=== PATIENT | male | born 1950 | race African-American/Black ===

== ENCOUNTER 2021-09-14 03:36 | Inpatient (IN) | payer OTHER, MEDICARE ==
[2021-09-14] VITALS (60 sets, daily range): BP systolic 69–158; BP diastolic 38–92
[~2021-09-14] VITALS: Ht 180.3 cm; Wt 89.8 kg
[2021-09-14] MEDS ORDERED: ACETAMINOPHEN 325 MG TABLET PO ONE (04:00)
[2021-09-14] MEDS ORDERED: IV NS 0.9% 1,000 ML BAG IV ONE ×2 (04:00→05:30)
--- NOTE | 2021-09-14 04:00 | NUR ---
JESSICA FROM [facility] FOR C/O GROSS HEMATURIA HX PROSTATE CA, WELL FEBRILE, TACHYCARDIC AND HYPOTENSIVE. PT AWAKE AND ALERT PLACED ON GUIDE DOG INSTRUCTOR AND PULSE OX AND WAS NOTED HYPOTENSIVE AT 60/47 HR 126. RESP. EVEN AND UNLABORED ON TRACH COLLAR 3LPM. WAS AT BEDSIDE FOR EVAL.
[2021-09-14] MEDS ORDERED: ACETAMINOPHEN ES 500 MG TABLET ONE (04:04)
--- NOTE | 2021-09-14 04:27 | NUR ---
CALLED [facility] AND SPOKE WITH HIS NURSE. SHE STATED THE LAST DOSE HE RECIEVED OF LOVENOX WAS 0900 09/13/21.
--- NOTE | 2021-09-14 04:38 | NUR ---
BLADDER MANUALLY IRRIGATED WITH 1500ML NS TOTAL. GROSS HEMATURIA NOTED AND MULTIPLE CLOTS VISUALIZED. PT TOLERATED PROCEDURE WELL.
[2021-09-14 04:50] LABS: BASOPHILS % (AUTO) 0.3 % (0.0-2.0); EOSINOPHILS % (AUTO) 0.1 % (0.0-6.0); HEMATOCRIT 30 % (39-51); HEMOGLOBIN 9.4 g/dL (13.5-17.5); LYMPHOCYTES # (AUTO) 0.4 K/uL (0.8-4.8); LYMPHOCYTES % (AUTO) 2.8 % (20.0-44.0); MEAN CORPUSCULAR HGB CONC 32 g/dl (31.0-36.0); MEAN CORPUSCULAR VOLUME 81 fL (80-96); MONOCYTES # (AUTO) 0.5 K/uL (0.1-1.30); MONOCYTES % (AUTO) 3.6 % (2.0-12.0); NEUTROPHILS # (AUTO) 12.2 K/uL (1.8-8.9); NEUTROPHILS % (AUTO) 93.2 % (43.0-81.0); PLATELET COUNT (AUTO) 432 K/uL (150-450); RED BLOOD CELL COUNT(AUTO) 3.66 MIL/uL (4.5-6.0); WHITE BLOOD COUNT (AUTO) 13.1 K/uL (4.3-11.0)
--- NOTE | 2021-09-14 04:55 | NUR ---
PATIENT TRANSPORTED TO CT SCAN VIA [facility]
[2021-09-14 05:26] LABS: CALCIUM, SERUM 9.9 mg/dL (8.5-10.1); CARBON DIOXIDE 25 mmol/L (21-32); CHLORIDE 95 mmol/L (98-107); CREATININE 1.8 mg/dL (0.6-1.3); GLUCOSE 115 mg/dL (74-106); POTASSIUM 4.8 mmol/L (3.5-5.1); SODIUM SERUM 132 mmol/L (136-145); UREA NITROGEN, BLOOD 41 mg/dL (7-18)
[2021-09-14] MEDS ORDERED: CEFTRIAXONE 1GM BAG (ER ONLY) 1 GM/50 ML PIGGYBACK IV ONE (05:30)
[2021-09-14] MEDS ORDERED: AZITHROMYCIN 500 MG in IV D5W 250 ML IV ONE (05:30)
[2021-09-14 05:31] LABS: ALANINE AMINOTRANSFERASE 73 U/L (12-78); ALBUMIN 2.4 g/dL (3.4-5.0); ALKALINE PHOSPHATASE 135 U/L (46-116); ASPARTATE AMINOTRANSFERASE 31 U/L (15-37); BILIRUBIN,DIRECT 0.2 mg/dL (0.0-0.2); BILIRUBIN,TOTAL 0.6 mg/dL (0.2-1.0); TOTAL PROTEIN, SERUM 7.3 g/dL (6.4-8.2)
--- NOTE | 2021-09-14 05:32 | NUR ---
PAGED [facility]. AWAITING A CALL BACK FROM PROVIDER.
[2021-09-14] MEDS ORDERED: CEFTRIAXONE 1GM BAG (ER ONLY) 50 ML IV ONE (05:36)
--- NOTE | 2021-09-14 05:47 | NUR ---
CALLED FACILITY AND SPOKE WITH BOAZ HERNANDEZ TO GET BASELINE BP. PER MARY, PT'S IS BASELINE WITH SBP IN THE 120S.
[2021-09-14 05:48] LABS: BILIRUBIN,URINE NEGATIVE (NEGATIVE); COLOR,URINE RED (YELLOW); LEUKOCYTE ESTERASE ,URINE SMALL (NEGATIVE); NITRITE, URINE POSITIVE (NEGATIVE); PH,URINE 7.5 (5.0-8.0); PROTEIN,URINE >=300 mg/dl (NEGATIVE); UGLUCOSE NEGATIVE (NEGATIVE); UROBILINOGEN,URINE 0.2 EU/dL (0.2)
[2021-09-14] MEDS ORDERED: AZITHROMYCIN 500 MG VIAL ONE (05:52)
[2021-09-14] MEDS ORDERED: NOREPINEPHRINE 8 MG in IV NS 0.9% 242 ML IV PRN ×3 (06:00→09:30)
[2021-09-14 06:28] LABS: BACTERIA,URINE None seen /HPF (None Seen); RBC,URINE TOO NUMEROUS TO COUN /HPF (0-2); SQUAMOUS EPITHELIAL CELL,UR None Seen /HPF (None Seen); WBC,URINE NONE SEEN /HPF (0-3)
[2021-09-14] MEDS ORDERED: ONDANSETRON HCL/PF 4 MG/2 ML VIAL IVP PRN (06:30)
--- NOTE | 2021-09-14 06:52 | NUR ---
PER NURSING SUP, PICC NURSE ETA 0800. PT GAVE VERBAL CONSENT FOR PICC LINE INSERTION AND CONSENT SIGNED BY TWO RN'S.AWAITING PICC LINE INSERTION FOR LEVOPHED ADMINSTRATION PER MD ORDER.
[2021-09-14] MEDS ORDERED: NOREPINEPHRINE 4 MG/4 ML AMPUL IV ONE (06:58)
--- NOTE | 2021-09-14 07:13 | NUR ---
LEVOPHED INITIATED AT 0.1MCG/KG/MIN PER PROTOCOL AT 20G LH. BP 60/34. WILL TITRATE PER PROTOCOL.
--- NOTE | 2021-09-14 07:15 | NUR ---
LEVOPHED TITRATED TO 0.3MCG/KG/MIN. PT TOLERATING WELL.
--- NOTE | 2021-09-14 07:24 | NUR ---
LAB UNABLE TO DRAWN, WAITING FOR PICC LINE INSERTION AT 0800
[2021-09-14] MEDS ORDERED: FURO-145 GT (08:14)
[2021-09-14] MEDS ORDERED: ZINC220C6 GT (08:14)
[2021-09-14] MEDS ORDERED: CRAN3875 GT (08:14)
[2021-09-14] MEDS ORDERED: DOCU-141 GT (08:14)
[2021-09-14] MEDS ORDERED: ENOX40DI SQ (08:14)
[2021-09-14] MEDS ORDERED: LEVO112T5 GT (08:14)
[2021-09-14] MEDS ORDERED: AMIN887L GT (08:14)
[2021-09-14] MEDS ORDERED: MULT-134 GT (08:14)
[2021-09-14] MEDS ORDERED: CHLO473M3 MM (08:14)
[2021-09-14] MEDS ORDERED: IPRA12.9 IH (08:14)
[2021-09-14] MEDS ORDERED: FAMO20TA8 PO (08:14)
[2021-09-14] MEDS ORDERED: CHOL200013 GT (08:14)
[2021-09-14] MEDS ORDERED: ASCO500C17 GT (08:14)
[2021-09-14] MEDS ORDERED: ALBU8.5H8 IH (08:14)
[2021-09-14] MEDS ORDERED: MIDO10TA GT (08:14)
--- NOTE | 2021-09-14 08:50 | NUR ---
PT TRANSPORTED TO ICU IN STABLE CONDITION WITH ACLS PROTOCOLS IN PLACE
[2021-09-14] MEDS ORDERED: ENOXAPARIN SODIUM 40 MG/0.4 ML DISP.SYRIN SQ SCH (09:00)
[2021-09-14] MEDS ORDERED: DOCUSATE SODIUM 100 MG CAPSULE PO SCH (09:00)
[2021-09-14] MEDS ORDERED: Medication Not On Formulary EA (Midodrine Hcl 10 MG) GT SCH (09:00)
[2021-09-14] MEDS ORDERED: FAMOTIDINE (20 MG) 20 MG TABLET PO SCH (09:00)
[2021-09-14] MEDS ORDERED: Z GUARD REMEDY 4 OZ OINT TP PRN (09:00)
--- NOTE | 2021-09-14 09:00 | NUR ---
PT ARRIVED IN ICU VIA GURNEY ACCOMPANIED BY KNITTING MACHINE MECHANIC'S ON 3L TRACH MASK AT 0843. PT ALERT OX3. LEVOPHED INFUSING PER MD ORDERS. HEMATURIA NOTED IN GALINDO CATHETER AT THIS TIME. PICC LINE RN ARRIVED TO INSERT PICC LINE AT THIS TIME. WILL CONTINUE TO MONITOR.
[2021-09-14] MEDS: IV NS 0.9% 1,000 ML IV PRN ×2 (10:00→23:08)
[2021-09-14] MEDS ORDERED: VANCOMYCIN 1.25 GM in IV D5W 250 ML IV ONE (10:00)
[2021-09-14] MEDS ORDERED: PHARMACY TO CHANGE PO MEDS TO GT/NG XX PRN (10:30)
[2021-09-14] MEDS: CHLORHEXIDINE GLUCONATE 15 ML UDC MM SCH ×2 (11:03→18:24)
[2021-09-14] MEDS: PANTOPRAZOLE 40 MG/PACK PACK GT SCH (11:03)
[2021-09-14] MEDS: IV NS 0.9% 250 ML IV PRN (11:08)
[2021-09-14] MEDS: NOREPINEPHRINE 8 MG in IV NS 0.9% 242 ML IV PRN (11:16)
[2021-09-14] MEDS ORDERED: ALBUTEROL SULFATE 8 GM HFA.AER.AD IH SCH (12:00)
[2021-09-14] MEDS: MIDODRINE HCL (5MG) 5 MG TABLET GT SCH ×3 (13:24→20:56)
[2021-09-14] MEDS: CEFEPIME 2 GM in IV D5W 100 ML IV SCH ×2 (13:24→20:56)
[2021-09-14] MEDS: ALBUTEROL FS 2.5 MG/3 ML VIAL.NEB NEB SCH ×2 (15:58→19:51)
--- NOTE | 2021-09-14 16:23 | NUR ---
PER [facility]. PT'S VACCINATIONS ARE FOLLOWS COVID ALL MODERNA 07/25/2020 08/23/2020 05/09/2021 PNA VACCINE 06/13/2019 FLU VACCINE 02/23/2021
[2021-09-14] MEDS: DOCUSATE SODIUM LIQ 100 MG/10 ML UDC GT SCH (17:00)
--- NOTE | 2021-09-14 19:35 | NUR ---
END OF SHIFT NOTE: PT HAD A FAIRLY UNEVENTFUL SHIFT. LEVOPHED GTT INFUSING PER MD ORDERS, CURRENTLY INFUSING AT 0.08 MCG/KG/MIN. PT HAD 2 BMS THIS SHIFT. GALINDO CATHETER CONTINUES TO DRAIN GUTIERREZ COLORED URINE, MD'S AWARE. RIGHT UPPER ARM PICC INSERTED WITHOUT DIFFICULTY PER MD ORDERS. PT CHECKED ON HOURLY AND PRN BY NURSING STAFF.
--- NOTE | 2021-09-14 20:00 | NUR ---
RN NOTE RECEIVED PT AWAKE, ALERT AND ORIENTED X 3. ON TRACH COLLAR AT 3L. DENIES ANY SOB. NO SIGNS OF DISTRESS NOTED. PT ON LEVOPHED AT 0.08MCG/KG/MIN, PICC LINE PATENT AND INTACT. PT ON NS AT 75ML/HR. NO SIGNS OF INFILTRATION NOTED. PEG IN PLACE, PATENT. GALINDO DRAINING DARK ORANGE URINE. PT DENIES PAIN AT THIS TIME. ALL SAFETY MEASURES IN PLACE. CALL LIGHT WITHIN REACH. WILL CONTINUE TO MONITOR.
[2021-09-14] MEDS: ACETAMINOPHEN 650 MG/20.3 ML UDC GT PRN (21:12)
--- NOTE | 2021-09-14 21:15 | NUR ---
RN NOTE PT COMPLAINED OF PAIN ON THE ARM 02/12. PT REQUESTED FOR TYLENOL. GIVEN ORDERED. WILL CONTINUE TO MONITOR.
--- NOTE | 2021-09-14 22:30 | NUR ---
RN NOTE BLOOD CULTURE RESULTS RELAYED TO SAÚL MURRAY. NO NEW ORDERS MADE. PT CURRENTLY ON IV ATB
[2021-09-15] VITALS (74 sets, daily range): BP systolic 71–148; BP diastolic 40–78
[2021-09-15] MEDS: ALBUTEROL FS 2.5 MG/3 ML VIAL.NEB NEB SCH ×4 (01:28→20:13)
[2021-09-15 04:21] LABS: BASOPHILS % (AUTO) 0.2 % (0.0-2.0); EOSINOPHILS % (AUTO) 0.7 % (0.0-6.0); HEMATOCRIT 22 % (39-51); HEMOGLOBIN 7.1 g/dL (13.5-17.5); LYMPHOCYTES # (AUTO) 0.6 K/uL (0.8-4.8); LYMPHOCYTES % (AUTO) 3.7 % (20.0-44.0); MEAN CORPUSCULAR HGB CONC 32 g/dl (31.0-36.0); MEAN CORPUSCULAR VOLUME 80 fL (80-96); MONOCYTES # (AUTO) 1.5 K/uL (0.1-1.30); MONOCYTES % (AUTO) 8.8 % (2.0-12.0); NEUTROPHILS % (AUTO) 86.6 % (43.0-81.0); PLATELET COUNT (AUTO) 332 K/uL (150-450); RED BLOOD CELL COUNT(AUTO) 2.75 MIL/uL (4.5-6.0); WHITE BLOOD COUNT (AUTO) 17.3 K/uL (4.3-11.0)
[2021-09-15 04:35] LABS: CARBON DIOXIDE 27 mmol/L (21-32); CHLORIDE 99 mmol/L (98-107); CREATININE 0.7 mg/dL (0.6-1.3); GLUCOSE 120 mg/dL (74-106); MAGNESIUM 1.8 mg/dL (1.8-2.4); PHOSPHORUS 4.5 mg/dL (2.5-4.9); POTASSIUM 3.4 mmol/L (3.5-5.1); SODIUM SERUM 135 mmol/L (136-145); UREA NITROGEN, BLOOD 29 mg/dL (7-18)
[2021-09-15] MEDS: ACETAMINOPHEN 650 MG/20.3 ML UDC GT PRN (04:39)
[2021-09-15] MEDS: NOREPINEPHRINE 8 MG in IV NS 0.9% 242 ML IV PRN (05:34)
--- NOTE | 2021-09-15 06:50 | NUR ---
RN CLOSING NOTES PT SLEEPING. AROUSES EASILY. PT ABLE TO MAKE NEEDS KNOWN. NOT IN ANY DISTRESS. CONTINUE ON O2 AT 2L VIA TRACH COLLAR SATING AT 100%. SR ON TELE MONITOR WITH HR AT 95 AT THIS TIME, PT WITH EPISODE OF SINUS TACH. PT DENIES ANY SOB OR CHEST PAIN. LEVOPHED RESTARTED DUE TO LOW BP, CURRENTLY AT 0.06MCG/KG/MIN. PICC LINE PATENT AND INTACT. PT REMAIN AFEBRILE. STILL NOTED WITH HEMATURIA. GALINDO INTACT, DRAINING WELL BY GRAVITY. ALL NEEDS ATTENDED. TURNED AND REPOSITIONED. WILL ENDORSE TO NEXT SHIFT NURSE FOR WALTER.
--- NOTE | 2021-09-15 07:30 | NUR ---
RN NOTES PT FOUND SEMI FOWLERS DISPLAYING NO S/S OF DISTRESS, PT ENDORSES NO PAIN AND IS BREATHING EVEN AND UNLABORED ON L2 O2 P8 TRACH. R UA PICC IS PATIENT AND INTACT. GALINDO CATH IS BELOW PATIENT DRAINING BY GRAVITY. VSS, RN WILL MONITOR AND TREAT THROUGHOUT SHIFT. SAFETY MEASURES IN PLACE, BED LOCKED AND IN LOWEST POSITION, SIDE RAILS UPX2, CALL LIGHT WITHIN REACH, PT INSTRUCTED TO CALL FOR ASSISTANCE.
[2021-09-15] MEDS: PANTOPRAZOLE 40 MG/PACK PACK GT SCH (08:04)
[2021-09-15] MEDS: CHLORHEXIDINE GLUCONATE 15 ML UDC MM SCH ×2 (08:04→17:00)
[2021-09-15] MEDS: LEVOTHYROXINE SODIUM 112 MCG TABLET GT SCH (08:04)
[2021-09-15] MEDS: MIDODRINE HCL (5MG) 5 MG TABLET GT SCH ×4 (08:05→20:48)
[2021-09-15] MEDS: DOCUSATE SODIUM LIQ 100 MG/10 ML UDC GT SCH ×2 (08:25→17:00)
[2021-09-15] MEDS: CEFEPIME 2 GM in IV D5W 100 ML IV SCH ×2 (08:26→20:48)
[2021-09-15] MEDS: VANCOMYCIN 1 GM in IV D5W 250 ML IV SCH (10:29)
[2021-09-15] MEDS: POTASSIUM CL. PREMIX PERIPHER. 50 ML IV SCH ×2 (12:38→13:48)
[2021-09-15] MEDS: IV NS 0.9% 1,000 ML IV PRN (13:00)
--- NOTE | 2021-09-15 16:50 | NUR ---
MD COMMUNICATION RN INFORMED MD THAT PT REPORTS 9/10 SHOULDER PAIN. MD GAVE ORDERS: 2MG MORPHINE IVP PRN SEVERE PAIN Q4H. RN ACKNOWLEDGED ORDER AND WILL EXECUTE DIRECTED.
[2021-09-15] MEDS ORDERED: MORPHINE SULFATE INJ 2 MG/ML DISP.SYRIN IV PRN (17:00)
--- NOTE | 2021-09-15 19:25 | NUR ---
RN NOTES PT FOUND SEMI FOWLERS DISPLAYING NO S/S OF DISTRESS, PT ENDORSES NO PAIN AND IS BREATHING EVEN AND UNLABORED ON L2 O2 PORTEX 8 TRACH. R UA PICC IS PATIENT AND INTACT. GALINDO CATH IS BELOW PATIENT DRAINING BY GRAVITY. SBAR AND REPORT GIVEN TO CHANGER FIXER RN, ALL QUESTIONS ANSWERED. SAFETY MEASURES IN PLACE, BED LOCKED AND IN LOWEST POSITION, SIDE RAILS UPX2, CALL LIGHT WITHIN REACH, PT INSTRUCTED TO CALL FOR ASSISTANCE. PT ENDORSED IN STABLE CONDITION FOR WALTER.
--- NOTE | 2021-09-15 19:30 | NUR ---
RN NOTE PT RECEIVED IN BED. PT HAS TRACH COLLAR AT 2 LPM, WITH CURRENT OXYGEN SATURATION AT 100%. NO SIGNS OF LABORED BREATHING. BREATHING EVEN AND UNLABORED. PT IS ALERT AND ORIENTED X3, ABLE TO VERBALIZE NEEDS. PT ON DATABASE ENGINEER CURRENTLY SHOWING NSR. PEG TUBE NOTED. INTACT, PATENT WITH NO RESIDUAL NOTED. F/C NOTED. IV ACCESS NOTED ON RIGHT UPPER ARM PICC. LINE FLUSHED, PATENT, AND INTACT WITH NO SIGNS OF INFILTRATION. 0.9% NS RUNNING AT 75 CC/HR. ALL SAFETY MEASURES IMPLEMENTED. HOB ELEVATED. CALL LIGHT WITHIN REACH. BED ALARM ON. BED LOCKED AND IN LOWEST POSITION. WILL CONTINUE TO MONITOR AND ASSESS FOR ANY CHANGES DURING SHIFT.
[2021-09-16] VITALS (30 sets, daily range): BP systolic 98–141; BP diastolic 49–75
[2021-09-16] MEDS: ALBUTEROL FS 2.5 MG/3 ML VIAL.NEB NEB SCH ×4 (01:25→20:24)
[2021-09-16] MEDS: IV NS 0.9% 1,000 ML IV PRN ×2 (01:52→17:20)
[2021-09-16 04:29] LABS: CALCIUM, SERUM 9.2 mg/dL (8.5-10.1); CARBON DIOXIDE 26 mmol/L (21-32); CHLORIDE 101 mmol/L (98-107); CREATININE 0.5 mg/dL (0.6-1.3); GLUCOSE 89 mg/dL (74-106); POTASSIUM 3.2 mmol/L (3.5-5.1); SODIUM SERUM 135 mmol/L (136-145); UREA NITROGEN, BLOOD 18 mg/dL (7-18)
[2021-09-16] MEDS: CEFEPIME 2 GM in IV D5W 100 ML IV SCH ×3 (04:51→21:42)
--- NOTE | 2021-09-16 06:26 | NUR ---
RN NOTE NO CHANGES IN PT CONDITION DURING SHIFT. PT HAS TRACH COLLAR AT 5 LPM, WITH CURRENT OXYGEN SATURATION AT 100%. NO SIGNS OF LABORED BREATHING. BREATHING EVEN AND UNLABORED. PT IS ALERT AND ORIENTED X3, ABLE TO VERBALIZE NEEDS. IV ACCESS NOTED ON RIGHT UPPER ARM PICC. LINE FLUSHED, PATENT, AND INTACT WITH NO SIGNS OF INFILTRATION. 0.9% NS RUNNING AT 75 CC/HR. ALL DUE MEDS GIVEN ORDERED. PT KEPT CLEAN AND COMFORTABLE. ALL SAFETY MEASURES IMPLEMENTED. HOB ELEVATED. CALL LIGHT WITHIN REACH. BED ALARM ON. BED LOCKED AND IN LOWEST POSITION. WILL ENDORSE TO MORNING SHIFT RN FOR WALTER.
--- NOTE | 2021-09-16 08:05 | NUR ---
WOUND CARE CONSULT: LIMITED ASSESSMENT TODAY DUE TO PT HAVING SHOULDER DISCOMFORT. UNABLE TO VISUALIZE LEFT BUTTOCK/THIGH AREA. ADMISSION PHOTO INDICATED SCARRING TO LEFT BUTTOCK/THIGH AREA. PT NOTED TO HAVE SCARRING TO SACRAL/BUTTOCKS AREA AND DISCOLORATION TO BILATERAL HEELS, PRESENT ON ADMISSION. RECOMMEND SURGICAL AND DPM CONSULTS (DR PARK AND DR TONY NOTIFIED. RECOMMENDATIONS MADE FOR SKIN PROTECTION. DISCUSSED WITH NURSING STAFF. PT IS ON [facility] LOW AIRLOSS BED. MD IN AGREEMENT WITH PLAN OF CARE.
[2021-09-16 09:04] LABS: CARBON DIOXIDE 26 mmol/L (21-32); CHLORIDE 102 mmol/L (98-107); CREATININE 0.5 mg/dL (0.6-1.3); GLUCOSE 89 mg/dL (74-106); SODIUM SERUM 136 mmol/L (136-145); UREA NITROGEN, BLOOD 16 mg/dL (7-18)
[2021-09-16] MEDS: PANTOPRAZOLE 40 MG/PACK PACK GT SCH (09:16)
[2021-09-16] MEDS: DOCUSATE SODIUM LIQ 100 MG/10 ML UDC GT SCH ×2 (09:16→17:41)
[2021-09-16] MEDS: CHLORHEXIDINE GLUCONATE 15 ML UDC MM SCH ×2 (09:16→17:41)
[2021-09-16] MEDS: MIDODRINE HCL (5MG) 5 MG TABLET GT SCH ×4 (09:17→21:42)
[2021-09-16] MEDS: LEVOTHYROXINE SODIUM 112 MCG TABLET GT SCH (09:18)
[2021-09-16] MEDS: VANCOMYCIN 1 GM in IV D5W 250 ML IV SCH (10:24)
[2021-09-16] MEDS: POTASSIUM CL. PREMIX PERIPHER. 50 ML IV SCH ×4 (10:29→14:20)
[2021-09-16 11:58] LABS: BASOPHILS # (AUTO) 0.1 K/uL (0.0-0.2); BASOPHILS % (AUTO) 0.8 % (0.0-2.0); EOSINOPHILS % (AUTO) 2.4 % (0.0-6.0); HEMATOCRIT 21 % (39-51); LYMPHOCYTES # (AUTO) 0.5 K/uL (0.8-4.8); LYMPHOCYTES % (AUTO) 4.9 % (20.0-44.0); MEAN CORPUSCULAR HGB CONC 33 g/dl (31.0-36.0); MEAN CORPUSCULAR VOLUME 80 fL (80-96); MONOCYTES # (AUTO) 0.7 K/uL (0.1-1.30); MONOCYTES % (AUTO) 6.6 % (2.0-12.0); NEUTROPHILS # (AUTO) 8.5 K/uL (1.8-8.9); NEUTROPHILS % (AUTO) 85.3 % (43.0-81.0); PLATELET COUNT (AUTO) 315 K/uL (150-450); RED BLOOD CELL COUNT(AUTO) 2.57 MIL/uL (4.5-6.0)
[2021-09-16 12:02] LABS: HEMOGLOBIN 6.8 g/dL (13.5-17.5)
--- NOTE | 2021-09-16 19:35 | NUR ---
RN NOTES RECEIVED REPORT FROM ICU NURSE TYRONE Adam
--- NOTE | 2021-09-16 20:00 | NUR ---
RN NOTES RECEIVED PATIENT FROM ICU, AWAKE, A/O X 3 ABLE TO MAKE NEEDS KNOWN, WITH TRACH COLLAR ON COOL AEROSOL @ 5 LPM, RESPIRATORY EVEN AND UNLABORED, REMAIN AFEBRILE, NO S/S OF DISTRESS NOTED. PATIENT NOTED WITH TERRI PICC LINE, LEFT HAND #18 PERIPHERAL LINE, INTACT IN PLACED, FLUSHED WITH NS. NO INFILTRATION NOTED AT SITE. RUNNING ON NS 1L @ 75 ML/HR. WITH G-TUBE IN PLACED, VERIFIED PLACEMENT BY AUSCULTATION, WITH NO RESIDUAL NOTED UPON ASPIRATION. ALL SAFETY PRECAUTION PROVIDED, BED IN LOWEST POSITION, LOCKED. CONTINUE TO MONITOR. Addendum: 09/17/21 at 0230 by KEISHA QUILES RN PATIENT NOTED WITH GALINDO CATHETER, DRAINING WELL VIA GRAVITY, WITH LIGHT PINK URINE COLOR, ON MONITORING FOR HEMATURIA.
[2021-09-17] VITALS (13 sets, daily range): BP systolic 107–142; BP diastolic 52–63
[2021-09-17] MEDS: ALBUTEROL FS 2.5 MG/3 ML VIAL.NEB NEB SCH ×5 (01:28→20:35)
[2021-09-17 03:22] LABS: BASOPHILS % (AUTO) 0.4 % (0.0-2.0); EOSINOPHILS % (AUTO) 2.9 % (0.0-6.0); HEMATOCRIT 21 % (39-51); LYMPHOCYTES # (AUTO) 0.5 K/uL (0.8-4.8); LYMPHOCYTES % (AUTO) 6.9 % (20.0-44.0); MEAN CORPUSCULAR HGB CONC 32 g/dl (31.0-36.0); MEAN CORPUSCULAR VOLUME 80 fL (80-96); MONOCYTES # (AUTO) 0.6 K/uL (0.1-1.30); MONOCYTES % (AUTO) 7.3 % (2.0-12.0); NEUTROPHILS # (AUTO) 6.3 K/uL (1.8-8.9); NEUTROPHILS % (AUTO) 82.5 % (43.0-81.0); PLATELET COUNT (AUTO) 323 K/uL (150-450); RED BLOOD CELL COUNT(AUTO) 2.66 MIL/uL (4.5-6.0); WHITE BLOOD COUNT (AUTO) 7.7 K/uL (4.3-11.0)
[2021-09-17 03:41] LABS: HEMOGLOBIN 6.9 g/dL (13.5-17.5)
[2021-09-17 03:49] LABS: CARBON DIOXIDE 24 mmol/L (21-32); CHLORIDE 101 mmol/L (98-107); CREATININE 0.5 mg/dL (0.6-1.3); GLUCOSE 86 mg/dL (74-106); MAGNESIUM 1.5 mg/dL (1.8-2.4); PHOSPHORUS 2.8 mg/dL (2.5-4.9); POTASSIUM 3.1 mmol/L (3.5-5.1); SODIUM SERUM 135 mmol/L (136-145); UREA NITROGEN, BLOOD 13 mg/dL (7-18)
--- NOTE | 2021-09-17 04:20 | NUR ---
RN NOTES RECEIVED CRITICAL LAB RESULT HEMOGLOBIN- 6.9, NOTIFIED MICHAEL MURRAY NP, WITH NEW ORDER TRANSFUSE 1 UNIT PRBC AND OCCULT BLOOD NOTED AND CARRIED OUT.
--- NOTE | 2021-09-17 05:09 | NUR ---
RN NOTES PATIENT REFUSED TO BE CLEAN, CHANGE GOWN AND LINEN, PATIENT STATES " I DON'T WANNA BE CHANGED I'M COMFORTABLE RIGHT NOW, I'M CLEAN, JUST CLEAN ME WHEN I HAVE BOWEL MOVEMENT" OFFERED 3X, EXPLAINED RISKS AND BENEFITS, STILL REFUSED.
[2021-09-17] MEDS: CEFEPIME 2 GM in IV D5W 100 ML IV SCH (05:42)
--- NOTE | 2021-09-17 07:17 | NUR ---
RN CLOSING NOTES PATIENT REMAIN STABLE THROUGH OUT THE SHIFT, RESPIRATORY EVEN AND UNLABORED, REMAIN AFEBRILE, NO S/S OF DISTRESS NOTED. RUNNING ON NS 1L @ 75 ML/HR. WITH G-TUBE IN PLACED, VERIFIED PLACEMENT BY AUSCULTATION, WITH NO RESIDUAL NOTED UPON ASPIRATION. ALL DUE MEDS GIVEN ORDERED. PATIENT NOTED WITH GALINDO CATHETER, DRAINING WELL VIA GRAVITY, WITH LIGHT PINK URINE COLOR, ON MONITORING FOR HEMATURIA. ALL SAFETY PRECAUTION PROVIDED, BED IN LOWEST POSITION, LOCKED. ENDORSED TO NEXT SHIFT
--- NOTE | 2021-09-17 08:00 | NUR ---
RN OPENING NOTES RECEIVED PATIENT IN BED AWAKE .RESPIRATORY EVEN AND UNLABORED, REMAIN AFEBRILE, NO S/S OF DISTRESS NOTED. RUNNING NS @ 75 ML/HR. PATIENT HAS TERRI PICC LINE.PATIENT WITH G-TUBE . PATIENT NOTED WITH GALINDO CATHETER, DRAINING WELL VIA GRAVITY, WITH LIGHT PINK URINE COLOR, ON MONITORING FOR HEMATURIA. NO PAIN NOTED. ALL SAFETY PRECAUTION IN PLACE., BED IN LOWEST POSITION, LOCKED. CALL LIGHT AND TABLE IN REACH. WILL CONTINUE TO MONITOR.
[2021-09-17] MEDS: CHLORHEXIDINE GLUCONATE 15 ML UDC MM SCH ×2 (08:40→17:18)
[2021-09-17] MEDS: DOCUSATE SODIUM LIQ 100 MG/10 ML UDC GT SCH ×2 (08:41→17:00)
[2021-09-17] MEDS: PANTOPRAZOLE 40 MG/PACK PACK GT SCH (08:41)
[2021-09-17] MEDS: MIDODRINE HCL (5MG) 5 MG TABLET GT SCH ×4 (08:41→21:00)
[2021-09-17] MEDS: IV NS 0.9% 1,000 ML IV PRN (09:02)
[2021-09-17] MEDS: LEVOTHYROXINE SODIUM 112 MCG TABLET GT SCH (09:17)
[2021-09-17] MEDS ORDERED: MERO500P IV (09:21)
[2021-09-17] MEDS ORDERED: POTASSIUM CHLORIDE 20 MEQ TAB.PRT.SR PO ONE (09:30)
[2021-09-17] MEDS ORDERED: Magnesium 1GM/D5W 100ML PREMIX 100 ML IV SCH ×2 (09:30→10:00)
--- NOTE | 2021-09-17 12:00 | NUR ---
RN NOTES START BLOOD TRANSFUSION AT 1200. VITAL SIGNS STABLE , WL=[phone]/[id number], P=82, RR=20, T=98.6
[2021-09-17] MEDS: VANCOMYCIN 1.25 GM in IV D5W 250 ML IV SCH (12:25)
--- NOTE | 2021-09-17 13:00 | NUR ---
RN NOTES HELD AMIODARONE. GTUBE NOT FLUSHING. DR SEWELL AND DR MEYER AWARE.
--- NOTE | 2021-09-17 14:30 | NUR ---
RN NOTES END BLOOD TRANSFUSION AT 1430. VITAL SIGNS XM=[id number]/55, P=88, T=98.1, RR=20. NO ADVERSE REACTION NOTED. PATIENT TOLERATED TRANSFUSION WELL.
[2021-09-17] MEDS: MEROPENEM 500 MG in IV NS 0.9% 50 ML IV SCH ×2 (14:58→21:34)
--- NOTE | 2021-09-17 17:00 | NUR ---
RN NOTES NOT BEING ABLE TO ADMINISTER AMIODARONE AND COLACE . GTUBE IS NOT FLUSHING. DR SEWELL AND DR MEYER AWARE.
--- NOTE | 2021-09-17 18:34 | NUR ---
PERMACULTURE CONTRACTOR CLOSING NOTES PATIENT IN BED AWAKE .RESPIRATORY EVEN AND UNLABORED, REMAIN AFEBRILE, NO S/S OF DISTRESS NOTED. RUNNING NS @ 75 ML/HR. PATIENT HAS TERRI PICC LINE.PATIENT WITH G-TUBE . GTUBE NOT FLUSHING. DR SEWELL AND DR MEYER AWARE. WAITING FOR DR SEWELL TO VISIT THE PATIENT.PATIENT NOTED WITH GALINDO CATHETER, DRAINING WELL VIA GRAVITY, WITH LIGHT PINK URINE COLOR, 1100 ML URINE OUTPUT. ON MONITORING FOR HEMATURIA. NO PAIN NOTED.ON TEL;E MONITOR READING SR 87. ALL SAFETY PRECAUTION IN PLACE., BED IN LOWEST POSITION, LOCKED. CALL LIGHT AND TABLE IN REACH. WILL ENDORSE FOR WALTER.
--- NOTE | 2021-09-17 19:05 | NUR ---
RN CLOSING NOTES RECEIVED PATIENT ON BED, AWAKE, A/O X 3 ABLE TO MAKE NEEDS KNOWN, WITH TRACH COLLAR ON COOL AEROSOL @ 5 LPM, RESPIRATORY EVEN AND UNLABORED, REMAIN AFEBRILE, NO S/S OF DISTRESS NOTED. PATIENT NOTED WITH TERRI PICC LINE, LEFT HAND #18 PERIPHERAL LINE, INTACT IN PLACED, FLUSHED WITH NS. NO INFILTRATION NOTED AT SITE. RUNNING ON NS 1L @ 75 ML/HR. WITH G-TUBE , CLOGGED, UNABLE TO FLUSHED. NOTED WITH GALINDO CATHETER, DRAINING WELL VIA GRAVITY, ON MONITORING FOR HEMATURIA. ALL SAFETY PRECAUTION PROVIDED, BED IN LOWEST POSITION, LOCKED. CONTINUE TO MONITOR. Addendum: 09/17/21 at 2141 by KEISHA QUILES RN RN OPENING NOTES
--- NOTE | 2021-09-17 21:39 | NUR ---
RN NOTES UNABLE TO ADMINISTER MIDODRINE 10MG, PATIENT G-TUBE IS CLOGGED.
[2021-09-18] VITALS: BP 121/65
[2021-09-18] MEDS: ALBUTEROL FS 2.5 MG/3 ML VIAL.NEB NEB SCH ×4 (01:39→19:26)
[2021-09-18] MEDS: IV NS 0.9% 1,000 ML IV PRN (03:00)
[2021-09-18 04:00] VITALS: BP 104/55
[2021-09-18] MEDS: MEROPENEM 500 MG in IV NS 0.9% 50 ML IV SCH ×3 (05:08→21:10)
[2021-09-18 07:05] LABS: CALCIUM, SERUM 9.2 mg/dL (8.5-10.1); CARBON DIOXIDE 21 mmol/L (21-32); CHLORIDE 99 mmol/L (98-107); CREATININE 0.4 mg/dL (0.6-1.3); GLUCOSE 74 mg/dL (74-106); MAGNESIUM 1.5 mg/dL (1.8-2.4); SODIUM SERUM 134 mmol/L (136-145); UREA NITROGEN, BLOOD 10 mg/dL (7-18)
--- NOTE | 2021-09-18 07:08 | NUR ---
RN CLOSING NOTES SIGNIFICANT CHANGES THROUGH OUT THE SHIFT, RESPIRATORY EVEN AND UNLABORED, REMAIN AFEBRILE, NO S/S OF DISTRESS NOTED. PATIENT NOTED WITH TERRI PICC LINE, LEFT HAND #18 PERIPHERAL LINE, INTACT IN PLACED, FLUSHED WITH NS. NO INFILTRATION NOTED AT SITE. RUNNING ON NS 1L @ 75 ML/HR. WITH G-TUBE , CLOGGED, UNABLE TO FLUSHED. NOTED WITH GALINDO CATHETER, DRAINING WELL VIA GRAVITY, ON MONITORING FOR HEMATURIA. ALL DUE MEDS GIVEN ORDERED. ALL SAFETY PRECAUTION PROVIDED, BED IN LOWEST POSITION, LOCKED. CONTINUE TO MONITOR.
[2021-09-18 07:14] LABS: POTASSIUM 2.7 mmol/L (3.5-5.1)
--- NOTE | 2021-09-18 07:37 | NUR ---
CLINICAL BIOCHEMIST OPENING NOTES RECEIVED PATIENT IN BED, A/O X3. CURRENTLY IN COOL AEROSOL P#8, FIO2 28%, 5LPM. INDWELLING GALINDO CATHETER IS DRAINING JOHN URINE NO SIGNS OF BLEEDING. NO SOB NOTED, NO CHEST DISCOMFORT OR ACUTE DISTRESS NOTED. ALL NEEDS ATTENDED TO AT THIS TIME. ALL SAFETY MEASURES IN PLACE, BED IN LOWEST POSITION AND LOCKED, TWO SIDE RAILS ARE UP. CALL LIGHT WITHIN REACH. WILL CONTINUE TO MONITOR PATIENT.
[2021-09-18 08:00] VITALS: BP 121/59
[2021-09-18 08:41] LABS: BASOPHILS % (AUTO) 0.6 % (0.0-2.0); EOSINOPHILS % (AUTO) 2.3 % (0.0-6.0); HEMATOCRIT 25 % (39-51); LYMPHOCYTES # (AUTO) 0.7 K/uL (0.8-4.8); LYMPHOCYTES % (AUTO) 9.1 % (20.0-44.0); MEAN CORPUSCULAR HGB CONC 32 g/dl (31.0-36.0); MEAN CORPUSCULAR VOLUME 83 fL (80-96); MONOCYTES # (AUTO) 0.7 K/uL (0.1-1.30); MONOCYTES % (AUTO) 9.5 % (2.0-12.0); NEUTROPHILS # (AUTO) 5.9 K/uL (1.8-8.9); NEUTROPHILS % (AUTO) 78.5 % (43.0-81.0); PLATELET COUNT (AUTO) 285 K/uL (150-450); RED BLOOD CELL COUNT(AUTO) 2.97 MIL/uL (4.5-6.0); WHITE BLOOD COUNT (AUTO) 7.5 K/uL (4.3-11.0)
[2021-09-18] MEDS: PANTOPRAZOLE 40 MG/PACK PACK GT SCH (09:54)
[2021-09-18] MEDS: MIDODRINE HCL (5MG) 5 MG TABLET GT SCH ×4 (09:54→21:00)
[2021-09-18] MEDS: LEVOTHYROXINE SODIUM 112 MCG TABLET GT SCH (09:54)
[2021-09-18] MEDS: CHLORHEXIDINE GLUCONATE 15 ML UDC MM SCH ×2 (09:54→16:12)
[2021-09-18] MEDS: DOCUSATE SODIUM LIQ 100 MG/10 ML UDC GT SCH ×2 (09:55→16:12)
[2021-09-18] MEDS: VANCOMYCIN 1.25 GM in IV D5W 250 ML IV SCH (09:57)
[2021-09-18 10:46] LABS: BAND % (MANUAL) 6 % (0.0-5.0); NEUTROPHILS % (MANUAL) 77 (42-76)
[2021-09-18 10:47] LABS: EOSINOPHILS % (MANUAL) 1 % (0-4); LYMPHOCYTES % (MANUAL) 10 % (16-48); MONOCYTES % (MANUAL) 6 % (0-11.0)
--- NOTE | 2021-09-18 11:40 | NUR ---
POLYMERIZATION HELPER NOTES PATIENT G-TUBE STILL CLOGGED. TRIED DECLOGGER PROVIDED BY CS AND STILL CLOGGED. TOLD MD MEYRE. GI DOCTOR STILL HASN'T SEEN PATIENT FOR CONSULT AT THIS TIME.
[2021-09-18 12:00] VITALS: BP 138/63
[2021-09-18] MEDS: Magnesium 1GM/D5W 100ML PREMIX 100 ML IV SCH ×2 (12:14→13:27)
[2021-09-18] MEDS: POTASSIUM CL. PREMIX PERIPHER. 50 ML IV SCH ×5 (12:14→15:31)
[2021-09-18] MEDS: IV D5/ 0.9% NACL 1,000 ML IV SCH ×2 (12:16→21:11)
[2021-09-18 16:00] VITALS: BP 117/59
--- NOTE | 2021-09-18 18:33 | NUR ---
PROCESS CONTROL OPERATOR CLOSING NOTES PATIENT NO SIGNIFICANT CHANGES THROUGH OUT THE SHIFT, RESPIRATORY EVEN AND UNLABORED, REMAIN AFEBRILE, NO S/S OF DISTRESS NOTED. PATIENT NOTED WITH TERRI PICC LINE, LEFT HAND #18 PERIPHERAL LINE, INTACT IN PLACED, FLUSHED WITH NS. NO INFILTRATION NOTED AT SITE. RUNNING ON D5NS 1L @ 100 ML/HR. WITH G-TUBE , STILL CLOGGED, UNABLE TO FLUSH. NOTED WITH GALINDO CATHETER, DRAINING WELL VIA GRAVITY, ON MONITORING FOR HEMATURIA. ALL DUE MEDS GIVEN ORDERED. ALL SAFETY PRECAUTION PROVIDED, BED IN LOWEST POSITION, LOCKED. WILL GIVE REPORT TO UPCOMING SHIFT FOR WALTER.
--- NOTE | 2021-09-18 19:45 | NUR ---
RN OPENING NOTES RECEIVED PATIENT IN BED ALERT, AWAKE X3, RESPONSIVE TO PAINFUL STIMULI. ON T-PIECE TRACH P#8. PT TOLERATED WELL. BREATHING EVEN AND UNLABORED. IV ACCESS ON TERRI PICC LINE AND LEFT HAND #18 SALINE LOCK. INTACT AND PATENT. NO S/S OF INFILTRATIONS. RUNNING ON D5NS 1000CC @ 100 ML/HR. G-TUBE STILL CLOGGED, UNABLE TO FLUSH. GALINDO CATHETER INTACT AND PATENT, YELLOWISH/CLOUDY URINE. NO HEMATURIA NOTED. NO FACIAL GRIMACING NOTED. NO ACUTE DISTRESS. ALL SAFETY MEASURE IN PLACE. BED IN LOWEST POSITION AND LOCKED. PLACE CALL LIGHT WITH IN REACH. WILL CONTINUE TO MONITOR
[2021-09-18 20:00] VITALS: BP 118/55
--- NOTE | 2021-09-18 21:52 | NUR ---
RN NOTES: MIDODRINE ON HOLD. GTUBE STILL CLOGGED. NPO EXCEPT MEDS. PT IS ON TRACH WITH T-PIECE. RECEIVED THE ORDER FOR SWALLOW EVALUATION TOMORROW MORNING. ORDER NOTED AND CARRIED OUT.
[2021-09-19] VITALS: BP 149/73
[2021-09-19] MEDS: ALBUTEROL FS 2.5 MG/3 ML VIAL.NEB NEB SCH ×4 (01:52→20:36)
[2021-09-19 04:00] VITALS: BP 152/69
[2021-09-19] MEDS: MEROPENEM 500 MG in IV NS 0.9% 50 ML IV SCH ×3 (04:17→21:10)
--- NOTE | 2021-09-19 06:35 | NUR ---
RN CLOSING NOTES PATIENT IN BED ALERT, AWAKE X3, RESPONSIVE TO PAINFUL STIMULI. ON T-PIECE TRACH P#8. O2 SAT 100% AND PT TOLERATED WELL. BREATHING EVEN AND UNLABORED. IV ACCESS ON TERRI PICC LINE AND LEFT HAND #18 SALINE LOCK. INTACT AND PATENT. NO S/S OF INFILTRATIONS. RUNNING ON D5NS 1000CC @ 100 ML/HR. G-TUBE STILL CLOGGED, UNABLE TO FLUSH. GALINDO CATHETER INTACT AND PATENT, YELLOWISH/CLOUDY URINE. NO HEMATURIA NOTED. ICE CHIP SMALL AMOUNT PER ORDER. NO FACIAL GRIMACING NOTED. NO ACUTE DISTRESS. ALL SAFETY MEASURE IN PLACE. BED IN LOWEST POSITION AND LOCKED. PLACE CALL LIGHT WITH IN REACH. WILL ENDORSE TO MORNING SHIFT NURSE.
[2021-09-19 07:19] LABS: BASOPHILS # (AUTO) 0.1 K/uL (0.0-0.2); BASOPHILS % (AUTO) 0.9 % (0.0-2.0); EOSINOPHILS % (AUTO) 1.9 % (0.0-6.0); HEMATOCRIT 24 % (39-51); HEMOGLOBIN 7.9 g/dL (13.5-17.5); LYMPHOCYTES # (AUTO) 0.8 K/uL (0.8-4.8); LYMPHOCYTES % (AUTO) 9.3 % (20.0-44.0); MEAN CORPUSCULAR HGB CONC 33 g/dl (31.0-36.0); MEAN CORPUSCULAR VOLUME 81 fL (80-96); MONOCYTES # (AUTO) 0.7 K/uL (0.1-1.30); MONOCYTES % (AUTO) 9.1 % (2.0-12.0); NEUTROPHILS # (AUTO) 6.4 K/uL (1.8-8.9); NEUTROPHILS % (AUTO) 78.8 % (43.0-81.0); PLATELET COUNT (AUTO) 282 K/uL (150-450); RED BLOOD CELL COUNT(AUTO) 2.98 MIL/uL (4.5-6.0); WHITE BLOOD COUNT (AUTO) 8.2 K/uL (4.3-11.0)
[2021-09-19] MEDS: LEVOTHYROXINE SODIUM 112 MCG TABLET GT SCH (07:30)
--- NOTE | 2021-09-19 07:30 | NUR ---
RN OPENING NOTE PATIENT RECEIVED IN BED, RESTING. PATIENT WITH A TRACH, TPIECE AT 5L O2 WITH NO SIGNS OF LABORED BREATHING AT THIS TIME. GALINDO CATHETER IN PLACE. PATIENT CURRENTLY NPO. RIGHT UA PICC LINE AND LEFT HAND 18G SL IN PLACE RUNNING D5NS AT 100CC/HR. GTUBE IN PLACE, REPORTED BY SENIOR TECHNICAL SUPPORT ANALYST THAT GTUBE IN CLOGGED. NO SIGNS OF ACUTE DISTRESS NOTED AT THIS TIME. BED LOCKED AND IN LOWEST POSITION, CALL LIGHT WITHIN REACH, 2 SIDE RAILS UP. WILL CONTINUE TO MONITOR.
[2021-09-19 07:56] LABS: CALCIUM, SERUM 8.7 mg/dL (8.5-10.1); CARBON DIOXIDE 26 mmol/L (21-32); CHLORIDE 100 mmol/L (98-107); CREATININE 0.5 mg/dL (0.6-1.3); GLUCOSE 118 mg/dL (74-106); MAGNESIUM 1.7 mg/dL (1.8-2.4); SODIUM SERUM 137 mmol/L (136-145); UREA NITROGEN, BLOOD 7 mg/dL (7-18)
[2021-09-19 08:00] VITALS: BP 120/64
[2021-09-19 08:02] LABS: POTASSIUM 2.4 mmol/L (3.5-5.1)
[2021-09-19] MEDS: CHLORHEXIDINE GLUCONATE 15 ML UDC MM SCH ×2 (08:25→16:57)
[2021-09-19] MEDS: POTASSIUM CL. PREMIX PERIPHER. 50 ML IV SCH ×6 (08:25→13:38)
[2021-09-19] MEDS: IV D5/ 0.9% NACL 1,000 ML IV SCH ×2 (08:26→16:58)
[2021-09-19] MEDS ORDERED: Magnesium 1GM/D5W 100ML PREMIX 100 ML IV SCH (08:30)
[2021-09-19] MEDS: MIDODRINE HCL (5MG) 5 MG TABLET GT SCH ×4 (08:48→21:00)
[2021-09-19] MEDS: DOCUSATE SODIUM LIQ 100 MG/10 ML UDC GT SCH ×2 (08:48→16:57)
[2021-09-19] MEDS: PANTOPRAZOLE 40 MG/PACK PACK GT SCH (08:48)
--- NOTE | 2021-09-19 09:27 | NUR ---
RN NOTE PATIENT PENDING SWALLOW EVAL, ALL PO MEDS HELD AT THIS TIME.
[2021-09-19] MEDS: VANCOMYCIN 1.25 GM in IV D5W 250 ML IV SCH ×2 (10:35→21:10)
[2021-09-19 12:00] VITALS: BP 135/72
[2021-09-19 16:00] VITALS: BP 124/66
[2021-09-19 16:19] LABS: BAND % (MANUAL) 1 % (0.0-5.0); LYMPHOCYTES % (MANUAL) 15 % (16-48); MONOCYTES % (MANUAL) 10 % (0-11.0); NEUTROPHILS % (MANUAL) 73 (42-76); REACTIVE LYMPHOCYTES 1 % (0-0)
--- NOTE | 2021-09-19 18:00 | NUR ---
RN NOTE PATIENT REFUSING TO BE CLEANED AND TO HAVE LINEN CHANGED. WILL ENDORSE TO CHILD CAREGIVER NURSE
--- NOTE | 2021-09-19 19:10 | NUR ---
RN NOTES RECEIVED REPORT FROM MORNING NURSE PATIENT IN BED A/O X3.ON TRACH AT PORTEX # 8 CONNECTED TO COOL AEROSOL AT 5 LPM. TOLERATING WELL SATING 99%. WITH GALINDO CATHETER CONNECTED TO URINE BAG DRAINING WELL WITH YELLOWISH URINE OUTPUT. WITH IV ACCESS AT TERRI PICC LINE PATENT FLUSHES WELL. WITH L HAND G#18 PATENT FLUSHES WELL. VITALS SIGNS TAKEN AND RECORDED AFEBRILE. PATIENT WITH GT IN PLACE CLOGGED MD IS AWARE. ALL SAFETY MEASURES IN PLACE, HOB ELEVATED. CALL LIGHT WITHIN REACH. WILL CLOSELY MONITOR THE PATIENT.
--- NOTE | 2021-09-19 19:24 | NUR ---
RN CLOSING NOTE PATIENT REMAINS IN BED, RESTING. PATIENT WITH A TRACH, TPIECE AT 5L O2 WITH NO SIGNS OF LABORED BREATHING AT THIS TIME. GALINDO CATHETER IN PLACE. PATIENT CURRENTLY NPO. RIGHT UA PICC LINE AND LEFT HAND 18G SL IN PLACE RUNNING D5NS AT 100CC/HR. GTUBE IN PLACE, REPORTED BY GEOLOGICAL E LOGGER THAT GTUBE IN CLOGGED. NO SIGNS OF ACUTE DISTRESS NOTED AT THIS TIME. BED LOCKED AND IN LOWEST POSITION, CALL LIGHT WITHIN REACH, 2 SIDE RAILS UP. WILL ENDORSE TO GEOLOGICAL E LOGGER NURSE.
[2021-09-19 20:00] VITALS: BP 126/68
[2021-09-20] VITALS: BP 129/61
[2021-09-20] MEDS: ALBUTEROL FS 2.5 MG/3 ML VIAL.NEB NEB SCH ×4 (02:14→20:19)
[2021-09-20] MEDS: IV D5/ 0.9% NACL 1,000 ML IV SCH ×2 (03:54→14:17)
[2021-09-20 04:00] VITALS: BP 110/62
[2021-09-20] MEDS: MEROPENEM 500 MG in IV NS 0.9% 50 ML IV SCH ×3 (05:06→21:14)
--- NOTE | 2021-09-20 06:33 | NUR ---
RN NOTES PATIENT REMAINS STABLE THE WHOLE SHIFT NO SIGNIFICANT CHANGES IN HEALTH CONDITION THIS SHIFT. ALL DUE MEDS GIVEN ORDERED. GT IN PLACE BUT CLOGGED STILL WAITING FOR GI CONSULT. ALL DUE MEDICATION GIVEN ORDERED. ALL NEEDS ATTENDED PROMPTLY. FREQUENT VISUAL MONITORING RENDERED. ALL SAFETY MEASURES IN PLACE AT ALL TIMES. HOB ELEVATED. BED ON LOWEST POSITION AND LOCKED. WILL ENDORSED TO MORNING SHIFT FOR WALTER
--- NOTE | 2021-09-20 07:20 | NUR ---
RN OPENING NOTES PATIENT IN BED AWAKE, A/O X3, VERBALLY RESPONSIVE, NO SIGNS OF ACUTE DISTRESS. PATIENT WITH A TRACH, T-PIECE AT 5L O2 WITH NO SIGNS OF LABORED BREATHING AT THIS TIME. F/C IN PLACE DRAINING CLEAR YELLOW URINE, NO HEMATURIA NOTED. PATIENT CURRENTLY NPO. RIGHT UPPER ARM PICC LINE AND LEFT HAND 18G SL IN PLACE RUNNING D5NS AT 100CC/HR. G-TUBE IN PLACE, REPORTED BY DELIVERY AIDE THAT G-TUBE IS CLOGGED. AWAITING SWALLOW EVAL. SAFETY MEASURES IN PLACE. BED LOCKED AND IN LOWEST POSITION, CALL LIGHT WITHIN REACH, SIDE RAILS UP X2. WILL CONTINUE TO MONITOR PATIENT.
[2021-09-20] MEDS: LEVOTHYROXINE SODIUM 112 MCG TABLET GT SCH (07:30)
[2021-09-20 07:49] LABS: CALCIUM, SERUM 8.4 mg/dL (8.5-10.1); CARBON DIOXIDE 24 mmol/L (21-32); CHLORIDE 101 mmol/L (98-107); CREATININE 0.3 mg/dL (0.6-1.3); GLUCOSE 121 mg/dL (74-106); POTASSIUM 2.9 mmol/L (3.5-5.1); SODIUM SERUM 136 mmol/L (136-145); UREA NITROGEN, BLOOD 5 mg/dL (7-18)
[2021-09-20 08:00] VITALS: BP 120/60
[2021-09-20] MEDS: MIDODRINE HCL (5MG) 5 MG TABLET GT SCH ×4 (09:00→21:00)
[2021-09-20] MEDS: PANTOPRAZOLE 40 MG/PACK PACK GT SCH (09:00)
[2021-09-20] MEDS: DOCUSATE SODIUM LIQ 100 MG/10 ML UDC GT SCH ×2 (09:00→16:26)
[2021-09-20] MEDS: CHLORHEXIDINE GLUCONATE 15 ML UDC MM SCH ×2 (09:00→16:26)
--- NOTE | 2021-09-20 09:30 | NUR ---
RN NOTES ALL AM PO MEDS WITHHELD, AWAITING FOR SWALLOW EVAL.
[2021-09-20] MEDS: VANCOMYCIN 1.25 GM in IV D5W 250 ML IV SCH ×2 (09:34→22:11)
[2021-09-20] MEDS: POTASSIUM CHLORIDE 20 MEQ POWDER PACKET PO SCH ×3 (10:13→12:22)
--- NOTE | 2021-09-20 10:50 | NUR ---
RN NOTES SEEN AND EVALUATED BY ST, ABLE TO TOLERATE PO INTAKE WITHOUT S/SX OF ASPIRATION.
[2021-09-20 12:00] VITALS: BP 141/66
[2021-09-20 16:00] VITALS: BP 105/66
--- NOTE | 2021-09-20 18:55 | NUR ---
RN CLOSING NOTES PATIENT IN BED AWAKE, A/O X3, VERBALLY RESPONSIVE, NO SIGNS OF ACUTE DISTRESS. PATIENT WITH A TRACH, T-PIECE AT 5L O2 WITH NO SIGNS OF LABORED BREATHING AT THIS TIME. F/C IN PLACE DRAINING CLEAR YELLOW URINE, NO HEMATURIA NOTED. PATIENT IS NPO EXCEPT MEDS. SEEN BY ST, ABLE TO TOLERATE PO WITHOUT S/SX OF ASPIRATIONS. RIGHT UPPER ARM PICC LINE AND LEFT HAND 18G SL IN PLACE RUNNING D5NS AT 100CC/HR. ON TELE MONITOR SHOWING SR. SAFETY MEASURES IN PLACE. BED LOCKED AND IN LOWEST POSITION, CALL LIGHT WITHIN REACH, SIDE RAILS UP X2. WILL ENDORSE TO NEXT SHIFT.
--- NOTE | 2021-09-20 19:10 | NUR ---
RN NOTES RECEIVED REPORT FROM MORNING NURSE PATIENT IN BED A/O X3.ON TRACH AT PORTEX # 8 CONNECTED TO COOL AEROSOL AT 5 LPM. TOLERATING WELL SATING 99%. WITH GALINDO CATHETER CONNECTED TO URINE BAG DRAINING WELL WITH YELLOWISH URINE OUTPUT. WITH IV ACCESS AT TERRI PICC LINE PATENT FLUSHES WELL WITH IVF D5NS@100CC/HR . WITH L HAND G#18 PATENT FLUSHES WELL. VITALS SIGNS TAKEN AND RECORDED AFEBRILE. PATIENT WITH GT IN PLACE CLOGGED MD IS AWARE. ALL SAFETY MEASURES IN PLACE, HOB ELEVATED. CALL LIGHT WITHIN REACH. WILL CLOSELY MONITOR THE PATIENT.
[2021-09-20 20:00] VITALS: BP 137/64
[2021-09-21] VITALS: BP 115/57
[2021-09-21] MEDS: ALBUTEROL FS 2.5 MG/3 ML VIAL.NEB NEB SCH ×4 (02:24→21:07)
[2021-09-21] MEDS: IV D5/ 0.9% NACL 1,000 ML IV SCH ×3 (03:39→15:54)
[2021-09-21 04:00] VITALS: BP 100/52
[2021-09-21] MEDS: MEROPENEM 500 MG in IV NS 0.9% 50 ML IV SCH ×3 (05:17→21:09)
--- NOTE | 2021-09-21 06:49 | NUR ---
RN NOTES PATIENT REMAINS IN STABLE CONDITION. ALL DUE MEDS GIVEN ORDERED NO DESATURATION NO DISTRESS NOTED THIS SHIFT. IV ACCESS AT NOAM PICC LINE PATENT FLUSHES WELL WITH ONGOING IVF D5NS 100 CC/HR. GALINDO CATHTER CONNECTED TO URINE BAG DRAINING WELL.ALL SAFETY MEASURES IN PLACE AT ALL TIMES. HOB ELEVATED. CALL LIGHT WITHIN REACH. WILL ENDORSED TO MORNING SHIFT FOR WALTER
--- NOTE | 2021-09-21 07:36 | NUR ---
RN opening note 0700 Patient endorsed by outgoing nurse for continuity of care. Received Patient in bed locked at lowest position with upper side rails raised and call light within reach. Patient A&OX4, Patient is verbalized and speak slowly. No sign of distress or SOB noted; breathing is even and unlabored, Patient in with trach. Regular heart rhythm and on the alarm security or surveillance monitor. Patient has TERRI picc line and left hand 18 akosua.Non -ambulatory, incontinent GI, bowel sounds present in all quadrants soft and non distended. Incontinent . Encouraged call light use and reinforced unit policies. POC reviewed with Pt., questions and concerns addressed. Will continue to monitor changes in Pt. condition and Pt. safety.
[2021-09-21 08:00] VITALS: BP 94/56
[2021-09-21] MEDS: PANTOPRAZOLE 40 MG/PACK PACK GT SCH (08:10)
[2021-09-21] MEDS: DOCUSATE SODIUM LIQ 100 MG/10 ML UDC GT SCH ×2 (08:12→16:44)
[2021-09-21] MEDS: CHLORHEXIDINE GLUCONATE 15 ML UDC MM SCH ×2 (08:12→16:43)
[2021-09-21 08:14] LABS: BASOPHILS % (AUTO) 0.6 % (0.0-2.0); EOSINOPHILS % (AUTO) 3.7 % (0.0-6.0); HEMATOCRIT 24 % (39-51); HEMOGLOBIN 7.9 g/dL (13.5-17.5); LYMPHOCYTES # (AUTO) 0.8 K/uL (0.8-4.8); LYMPHOCYTES % (AUTO) 11.7 % (20.0-44.0); MEAN CORPUSCULAR HGB CONC 33 g/dl (31.0-36.0); MEAN CORPUSCULAR VOLUME 80 fL (80-96); MONOCYTES # (AUTO) 0.7 K/uL (0.1-1.30); MONOCYTES % (AUTO) 10.2 % (2.0-12.0); NEUTROPHILS % (AUTO) 73.8 % (43.0-81.0); PLATELET COUNT (AUTO) 346 K/uL (150-450); RED BLOOD CELL COUNT(AUTO) 2.96 MIL/uL (4.5-6.0); WHITE BLOOD COUNT (AUTO) 6.7 K/uL (4.3-11.0)
[2021-09-21] MEDS: LEVOTHYROXINE SODIUM 112 MCG TABLET GT SCH (08:14)
[2021-09-21 08:54] LABS: CALCIUM, SERUM 8.1 mg/dL (8.5-10.1); CARBON DIOXIDE 25 mmol/L (21-32); CHLORIDE 102 mmol/L (98-107); CREATININE 0.4 mg/dL (0.6-1.3); GLUCOSE 111 mg/dL (74-106); SODIUM SERUM 136 mmol/L (136-145); UREA NITROGEN, BLOOD 4 mg/dL (7-18)
[2021-09-21 09:17] LABS: POTASSIUM 2.8 mmol/L (3.5-5.1)
[2021-09-21] MEDS: MIDODRINE HCL (5MG) 5 MG TABLET GT SCH ×4 (09:50→21:10)
[2021-09-21] MEDS: VANCOMYCIN 1.25 GM in IV D5W 250 ML IV SCH ×2 (10:00→10:07)
--- NOTE | 2021-09-21 11:17 | NUR ---
RN NOTE PHARMACY NOTIFIED OF VANCO TROUGH 20. PER PHARMACY OKAY TO GIVE WILL ADJUST NEXT DOSE.
[2021-09-21] MEDS: POTASSIUM CHLORIDE 20 MEQ POWDER PACKET GT SCH ×3 (12:13→14:03)
[2021-09-21 18:26] VITALS: BP 109/65
--- NOTE | 2021-09-21 18:57 | NUR ---
Patient is resting comfortably and is in no acute distress. Call light and tray table with personal belonging within reach. Patient was monitored throughout shift and vital remained in patient's baseline. Interventions were completed as needed. All of the patient's need have been met. Assistance was provided as needed. All due medications given per MD ordered. will endorse to desktop analyst.
--- NOTE | 2021-09-21 19:30 | NUR ---
MS RN NOTE PATIENT IN BED, A/OX 3. NO S/S OF APPARENT DISTRESS ON 5LPM OF O2 VIA TRACH, T-PIECE WITH PORTEX HEAD OF BED ELEVATED. DENIES PAIN. IV D5NS RUNNING @ 100 CC/HR. GALINDO DRAINING CLEAR YELLOW URINE. SAFETY IN PLACE. WILL CONTINUE WITH PATIENTS PLAN OF CARE.
[2021-09-21] MEDS: VANCOMYCIN 1 GM in IV D5W 250 ML IV SCH (22:09)
[2021-09-22] MEDS: ALBUTEROL FS 2.5 MG/3 ML VIAL.NEB NEB SCH ×4 (01:17→20:49)
[2021-09-22] MEDS: MEROPENEM 500 MG in IV NS 0.9% 50 ML IV SCH ×3 (05:05→20:49)
[2021-09-22] MEDS: IV D5/ 0.9% NACL 1,000 ML IV SCH ×2 (05:32→20:50)
[2021-09-22] MEDS: IV NS 0.9% 250 ML IV PRN (05:37)
--- NOTE | 2021-09-22 06:33 | NUR ---
MS RN CLOSING NOTE PATIENT REMAINS STABLE. A/OX3-4. NO S/S OF APPARENT DISTRESS ON 5LPM OF O2 TRACH WITH PASSY GANGA. PAIN MANAGED BY REPOSITIONING. TERRI PICC RUNNING NS @100 CC/HR. GALINDO CATH DRAINING JOHN URINE WITH SEDIMENTS. REMAINED NPO. ALL NEEDS ATTENDED, ALL SCHEDULED MEDICATION ADMINISTERED. SAFETY KEPT IN PLACE THE WHOLE SHIFT. WILL ENDORSE TO MORNING SHIFT RN FOR CONTINUITY OF CARE.
--- NOTE | 2021-09-22 07:38 | NUR ---
MS RN OPENING NOTE PATIENT IS IN BED WITH EYES CLOSED, EASY TO AROUSE. A/OX. NO S/SX OF DISTRESS NOTED. NO SOB. BREATHING IS EVEN AND UNLABORED. NO C/O PAIN. IV ACCESS TERRI PICC LINE PATENT AND INTACT WITH D5 NS RUNNING @100MLS/HR. SAFETY MEASURES IN PLACE WITH BED LOCKED IN LOW POSITION WITH SIDE RAILS UP X 2. CALL LIGHT IS WITHIN REACH. WILL CONTINUE TO MONITOR PATIENT THROUGHOUT SHIFT.
[2021-09-22] MEDS: PANTOPRAZOLE 40 MG/PACK PACK GT SCH (08:34)
[2021-09-22] MEDS: MIDODRINE HCL (5MG) 5 MG TABLET GT SCH ×4 (08:34→20:54)
[2021-09-22] MEDS: DOCUSATE SODIUM LIQ 100 MG/10 ML UDC GT SCH ×2 (08:34→16:37)
[2021-09-22] MEDS: CHLORHEXIDINE GLUCONATE 15 ML UDC MM SCH ×2 (08:34→16:37)
[2021-09-22] MEDS: LEVOTHYROXINE SODIUM 112 MCG TABLET GT SCH (08:36)
[2021-09-22 09:57] LABS: BASOPHILS # (AUTO) 0.1 K/uL (0.0-0.2); BASOPHILS % (AUTO) 0.9 % (0.0-2.0); EOSINOPHILS % (AUTO) 3.7 % (0.0-6.0); HEMATOCRIT 24 % (39-51); HEMOGLOBIN 7.8 g/dL (13.5-17.5); LYMPHOCYTES # (AUTO) 0.7 K/uL (0.8-4.8); LYMPHOCYTES % (AUTO) 9.8 % (20.0-44.0); MEAN CORPUSCULAR HGB CONC 32 g/dl (31.0-36.0); MEAN CORPUSCULAR VOLUME 82 fL (80-96); MONOCYTES # (AUTO) 0.6 K/uL (0.1-1.30); MONOCYTES % (AUTO) 8.6 % (2.0-12.0); NEUTROPHILS # (AUTO) 5.5 K/uL (1.8-8.9); PLATELET COUNT (AUTO) 328 K/uL (150-450); RED BLOOD CELL COUNT(AUTO) 2.94 MIL/uL (4.5-6.0); WHITE BLOOD COUNT (AUTO) 7.2 K/uL (4.3-11.0)
[2021-09-22] MEDS: VANCOMYCIN 1 GM in IV D5W 250 ML IV SCH ×2 (10:20→22:53)
[2021-09-22 10:30] LABS: CALCIUM, SERUM 7.6 mg/dL (8.5-10.1); CARBON DIOXIDE 26 mmol/L (21-32); CHLORIDE 106 mmol/L (98-107); CREATININE 0.5 mg/dL (0.6-1.3); POTASSIUM 2.9 mmol/L (3.5-5.1); SODIUM SERUM 141 mmol/L (136-145); UREA NITROGEN, BLOOD 3 mg/dL (7-18)
--- NOTE | 2021-09-22 10:30 | NUR ---
ms rn note spoke with dr arredondo gi doctor notified millicent gtube unable to flushed an very clotted , we have gi consult , to see patient, stated that will see patient soon today
[2021-09-22 10:33] LABS: GLUCOSE 397 mg/dL (74-106)
--- NOTE | 2021-09-22 12:20 | NUR ---
DEICER KIT ASSEMBLER NOTE ST AT BEDSIDE SWALLOW EVAL DONE , PER ST RECOMMENDATION ORDERED PUREE DIET WITH NECTAR THICK LIQUIDS
--- NOTE | 2021-09-22 17:00 | NUR ---
MS RN NOTE PT WAS SEEN BY DR. INTERIANO PIGS FEET FINISHER AT BEDSIDE WITH NEW ORDERS FOR POTASSIUM KCL 40MG PO DAILY UNTIL POTASSIUM LEVEL IS MORE THAN THAN 4. ORDERS READ BACK AND CARRIED OUT.
[2021-09-22] MEDS: POTASSIUM CHLORIDE 20 MEQ TAB.PRT.SR PO SCH (18:03)
--- NOTE | 2021-09-22 19:19 | NUR ---
MS RN CLOSING NOTE PATIENT IS IN BED WITH EYES CLOSED, EASY TO AROUSE. A/OX. NO S/SX OF DISTRESS NOTED. NO SOB. BREATHING IS EVEN AND UNLABORED. NO C/O PAIN. IV ACCESS TERRI PICC LINE PATENT AND INTACT. PT GOING FOR EGD WITH PEG PLACEMENT WITH DR. FLYNN; OBTAINED VERBAL CONSENT AND SIGNED BY 2 RNS. SAFETY MEASURES IN PLACE WITH BED LOCKED IN LOW POSITION WITH SIDE RAILS UP X 2. CALL LIGHT IS WITHIN REACH. WILL ENDORSE CONTINUITY OF CARE TO ONCOMING SHIFT.
--- NOTE | 2021-09-22 19:25 | NUR ---
RN NOTE PT RECEIVED IN BED. PT IS ON 5L OF O2 SHOWING NO S/S OF RESP DISTRESS. BREATHING EVEN AND UNLABORED. PT IS A/OX3-4. GALINDO CATH NOTED. PT IS NPO PER ENDORSEMENT FROM DAY SHIFT RN DUE TO PEG/EGD IN AM. RIGHT UPPER ARM PICCLINE NOTED. D5NS RUNNING AT 60 CC/HR. LINES FLUSHED, PATENT, AND INTACT WITH NO INFILTRATION. ALL SAFETY MEASURES IMPLEMENTED. HOB ELEVATED. CALL LIGHT WITHIN REACH. BED ALARM ON. BED LOCKED AND IN LOWEST POSITION. SIDE RAILS UP. WILL CONTINUE TO MONITOR AND ASSESS FOR ANY CHANGES DURING SHIFT.
[2021-09-22 20:00] VITALS: BP 124/62
[2021-09-23] MEDS: ALBUTEROL FS 2.5 MG/3 ML VIAL.NEB NEB SCH ×3 (02:31→14:03)
[2021-09-23 04:00] VITALS: BP 117/62
[2021-09-23] MEDS: MEROPENEM 500 MG in IV NS 0.9% 50 ML IV SCH ×2 (05:40→13:24)
--- NOTE | 2021-09-23 07:03 | NUR ---
RN NOTE NO CHANGES IN PT CONDITION DURING SHIFT. PT IS ON 5L OF O2 SHOWING NO S/S OF RESP DISTRESS. BREATHING EVEN AND UNLABORED. PT IS A/OX3-4. RIGHT UPPER ARM PICCLINE NOTED. D5NS RUNNING AT 60 CC/HR. LINES FLUSHED, PATENT, AND INTACT WITH NO INFILTRATION. ALL SAFETY MEASURES IMPLEMENTED. HOB ELEVATED. CALL LIGHT WITHIN REACH. BED ALARM ON. BED LOCKED AND IN LOWEST POSITION. SIDE RAILS UP. WILL ENDORSE TO MORNING SHIFT RN FOR [facility].
[2021-09-23] MEDS: LEVOTHYROXINE SODIUM 112 MCG TABLET GT SCH (07:30)
--- NOTE | 2021-09-23 07:53 | NUR ---
RN OPENING NOTES PATIENT IS AWAKE IN BED RESTING, A/O X3-4. NO S/S OF PAIN NOTED AT THIS TIME. ON ROOM AIR, NO DISTRESS OR SHORTNESS OF BREATH NOTED. IV ACCESS TERRI PICC LINE WITH D5 NS AT 60ML/HR, AND L HAND #18G INTACT, PATENT AND FLUSHING WELL. PATIENT HAVE GALINDO CATHETER, IN PLACED AND DRAINING WELL. FALL AND SAFETY MEASURES IN PLACE, BED ALARM ON, BED IN LOW AND LOCK POSITION, CALL LIGHT AND TABLE WITHIN EASY REACH, SIDE RAIL UP X2. WILL CONTINUE TO MONITOR. Addendum: 09/23/21 at 0759 by Keyla Grove RN PATIENT ON 5L OXYGEN.
[2021-09-23 08:00] VITALS: BP 115/60
[2021-09-23] MEDS: POTASSIUM CL. PREMIX PERIPHER. 50 ML IV SCH ×6 (08:30→13:30)
[2021-09-23] MEDS ORDERED: VANC1FRO2 IV (08:31)
[2021-09-23] MEDS: MIDODRINE HCL (5MG) 5 MG TABLET GT SCH ×3 (09:00→16:33)
[2021-09-23] MEDS: CHLORHEXIDINE GLUCONATE 15 ML UDC MM SCH ×2 (09:00→16:32)
[2021-09-23] MEDS: POTASSIUM CHLORIDE 20 MEQ TAB.PRT.SR PO SCH (09:00)
[2021-09-23] MEDS: PANTOPRAZOLE 40 MG/PACK PACK GT SCH (09:00)
[2021-09-23] MEDS: DOCUSATE SODIUM LIQ 100 MG/10 ML UDC GT SCH ×2 (09:00→16:32)
[2021-09-23] MEDS: VANCOMYCIN 1 GM in IV D5W 250 ML IV SCH (10:00)
[2021-09-23 10:27] LABS: BASOPHILS % (AUTO) 0.5 % (0.0-2.0); EOSINOPHILS % (AUTO) 4.6 % (0.0-6.0); HEMATOCRIT 24 % (39-51); LYMPHOCYTES # (AUTO) 0.7 K/uL (0.8-4.8); LYMPHOCYTES % (AUTO) 9.4 % (20.0-44.0); MEAN CORPUSCULAR HGB CONC 33 g/dl (31.0-36.0); MEAN CORPUSCULAR VOLUME 80 fL (80-96); MONOCYTES # (AUTO) 0.6 K/uL (0.1-1.30); MONOCYTES % (AUTO) 8.2 % (2.0-12.0); NEUTROPHILS # (AUTO) 5.4 K/uL (1.8-8.9); NEUTROPHILS % (AUTO) 77.3 % (43.0-81.0); PLATELET COUNT (AUTO) 365 K/uL (150-450); RED BLOOD CELL COUNT(AUTO) 3.04 MIL/uL (4.5-6.0)
[2021-09-23 10:41] LABS: CALCIUM, SERUM 8.2 mg/dL (8.5-10.1); CARBON DIOXIDE 28 mmol/L (21-32); CHLORIDE 103 mmol/L (98-107); CREATININE 0.4 mg/dL (0.6-1.3); GLUCOSE 110 mg/dL (74-106); POTASSIUM 3.3 mmol/L (3.5-5.1); SODIUM SERUM 138 mmol/L (136-145); UREA NITROGEN, BLOOD 3 mg/dL (7-18)
--- NOTE | 2021-09-23 11:00 | NUR ---
RN NOTE PATIENT IS NOT IN ROOM, PATIENT WAS TAKEN FOR SURGERY.
--- NOTE | 2021-09-23 11:16 | NUR ---
RN NOTE PATIENT VANCOMYCIN AND POTASSIUM CHLORIDE WAS NOT ADMINISTER BECAUSE PATIENT WAS TAKEN TO SURGERY. PATIENT IS NPO AND NO MEDS.
[2021-09-23 13:00] VITALS: BP 116/66
[2021-09-23] MEDS: IV D5/ 0.9% NACL 1,000 ML IV SCH (13:24)
--- NOTE | 2021-09-23 13:30 | NUR ---
RN NOTE PATIENT IS IN ROOM RESTING, HE IS BACK FROM SURGERY. VITAL SIGNS TAKEN AND STABLE. WILL CONTINUE TO MONITOR.
[2021-09-23 16:00] VITALS: BP 93/49
[2021-09-23 16:33] VITALS: BP 93/49
[2021-09-23] MEDS ORDERED: POTASSIUM CL. PREMIX PERIPHER. 50 ML IV SCH (18:00)
--- NOTE | 2021-09-23 20:03 | NUR ---
TELECOM ANALYST NOTE PATIENT DISCHARGE IN MEDICAL STABLE CONDITION. A/O 3-4. V/S TAKEN, STABLE AND RECORDED. IV ACCESS PATIENT IS GOING TO BE ON ANTIBIOTICS. SKIN ASSESSMENT DONE AND PICTURES TAKEN. NAME ARM BAND REMOVED. ALL BELONGING CHECKED AND SIGNED. HEALTH TEACHING AND DISCHARGE INSTRUCTIONS GIVEN AND VERBALIZED UNDERSTANDING. PATIENT LEFT UNIT VIA GURNEY WITH NO SIGNS OF DISTRESS, ACCOMPANIED BY PARAMEDICS. REPORT [facility] TO [facility]. CHARGE NURSE AWARE OF DISCHARGE.
== END 2021-09-23 20:00 | DRG 720 ==
LOC: ER 03:53 → ICU 08:25 → TELE1 09-16 19:56 → MEDSG1 09-21 07:50
PROVIDERS: ADMIT Internal Medicine; ATTEND Internal Medicine
PROC: 02HV33Z Insertion of Infusion Device into Superior Vena Cava, Percutaneous Approach (ICD-10-PCS; 2021-09-14)
PROC: B548ZZA Ultrasonography of Superior Vena Cava, Guidance (ICD-10-PCS; 2021-09-14)
PROC: 5A1935Z Respiratory Ventilation, Less than 24 Consecutive Hours (ICD-10-PCS; principal; 2021-09-15)
PROC: 30233N1 Transfusion of Nonautologous Red Blood Cells into Peripheral Vein, Percutaneous Approach (ICD-10-PCS; 2021-09-17)
PROC: 0DH63UZ Insertion of Feeding Device into Stomach, Percutaneous Approach (ICD-10-PCS; 2021-09-23)
DX: A41.59 Other Gram-negative sepsis (principal); J96.21 Acute and chronic respiratory failure with hypoxia; N17.0 Acute kidney failure with tubular necrosis; R65.21 Severe sepsis with septic shock; G93.41 Metabolic encephalopathy; E43 Unspecified severe protein-calorie malnutrition; D69.6 Thrombocytopenia, unspecified; K94.23 Gastrostomy malfunction; E87.2 Acidosis; I69.359 Hemiplegia and hemiparesis following cerebral infarction affecting unspecified side; E87.1 Hypo-osmolality and hyponatremia; E86.0 Dehydration; E03.9 Hypothyroidism, unspecified; E87.6 Hypokalemia; L89.616 Pressure-induced deep tissue damage of right heel; N39.0 Urinary tract infection, site not specified; I10 Essential (primary) hypertension; B95.2 Enterococcus as the cause of diseases classified elsewhere; Z20.822 Contact with and (suspected) exposure to COVID-19; Z85.46 Personal history of malignant neoplasm of prostate; Z91.81 History of falling; N31.9 Neuromuscular dysfunction of bladder, unspecified; E86.1 Hypovolemia; D64.9 Anemia, unspecified; J44.9 Chronic obstructive pulmonary disease, unspecified; Z79.01 Long term (current) use of anticoagulants; Z79.899 Other long term (current) drug therapy; Z79.51 Long term (current) use of inhaled steroids; J98.11 Atelectasis; R13.10 Dysphagia, unspecified; R31.0 Gross hematuria; Z86.69 Personal history of other diseases of the nervous system and sense organs; K29.70 Gastritis, unspecified, without bleeding; Z87.891 Personal history of nicotine dependence; E88.09 Other disorders of plasma-protein metabolism, not elsewhere classified; L89.626 Pressure-induced deep tissue damage of left heel
CPT/HCPCS: 31720; 36415; 36569; 43246; 71045-TC; 80048-TC; 80076-TC; 80202-TC; 81001; 82947-TC; 83605-TC; 83735-TC; 84100-TC; 84484-TC; 85025-TC; 85730-TC; 86850-TC; 87040-TC; 87081-TC; 87086-TC; 87186-TC; 92526; 92611-TC; 94640-TC; 94664-TC; 94762-TC; 94799-TC; 99082-TC; A4217; A4623; A7526; C9803; G0378; J0456; J0690; J0692; J0696; J2185; J2270; J3370; J3475; J3480; J3490; J7030; J7040; J7042; J7050; J7060; P9016; U0003